=== PATIENT | female | born 1985 | race Caucasian/White ===

== ENCOUNTER 2022-06-08 14:21 | Emergency (ER) | payer MEDICAID ==
[~2022-06-08] VITALS: Ht 162.6 cm; Wt 87.3 kg
[2022-06-08 14:31] VITALS: BP 127/69
--- NOTE | 2022-06-08 14:42 | NUR ---
PT AMB TO BED 8.
--- NOTE | 2022-06-08 14:43 | NUR ---
Dr. Bhandari evaluating patient at bedside.
[2022-06-08] MEDS ORDERED: HYDROcodone/APAP 5/325 MG 1 TAB TAB PO ONE (14:50)
--- NOTE | 2022-06-08 14:54 | NUR ---
36 y/o female bib self with pressure pain to rectum x 2 weeks and abdominal pain. Per patient, she has not had a good bowel movement in over 2 weeks. Patient denies any fever or chills. Denies any new foods or sick contacts. Patient was being evaluated by PCP and given "milk." Patient denies hemorrhoids, diarrha or any blood in stool. Medical History: ROMULO NKDA
[2022-06-08 15:23] LABS: BASOPHILS # (AUTO) 0.1 K/uL (0.00-0.22); BASOPHILS % (AUTO) 0.5 % (0.0-2.0); EOSINOPHILS % (AUTO) 0.3 % (0.0-4.0); HEMATOCRIT 41.9 % (36-48); HEMOGLOBIN 13.7 g/dL (12.0-16.0); LYMPHOCYTES # (AUTO) 1.1 K/uL (2.5-16.5); LYMPHOCYTES % (AUTO) 8.9 % (20.5-51.1); MEAN CORPUSCULAR HEMOGLOBIN 28 pg (27-31); MEAN CORPUSCULAR HGB CONC 33 g/dL (33-37); MEAN CORPUSCULAR VOLUME 85.5 fL (80-94); MONOCYTES # (AUTO) 0.6 K/uL (0.8-1.0); MONOCYTES % (AUTO) 5.1 % (1.7-9.3); NEUTROPHILS # (AUTO) 10.7 K/uL (1.8-7.7); NEUTROPHILS % (AUTO) 85.2 % (42.2-75.2); PLATELET COUNT (AUTO) 428 K/uL (140-450); RED CELL DISTRIBUTION WIDTH 13.9 % (11.6-13.7); WHITE BLOOD COUNT (AUTO) 12.6 K/uL (4.8-10.8)
--- NOTE | 2022-06-08 15:36 | NUR ---
Patient was taken to Radiology via wheelchair.
[2022-06-08 15:37] LABS: ALBUMIN 4.5 g/dL (3.4-5.0); ANION GAP 15.3 (8-16); CARBON DIOXIDE 28.7 mmol/L (21-32); TOTAL BILIRUBIN 0.4 mg/dL (0.0-1.0)
--- NOTE | 2022-06-08 15:46 | NUR ---
Patient returned from Imaging.
[2022-06-08] MEDS ORDERED: fentaNYL citrate 0.05 MG/ML VIAL IM ONE (15:50)
--- NOTE | 2022-06-08 16:20 | NUR ---
Chaperoned Dr. Bhandari during procedure.
[2022-06-08] MEDS ORDERED: SODIUM PHOSPHATE 118 ML ENEM RC ONE (16:40)
--- NOTE | 2022-06-08 17:13 | NUR ---
Patient ambulated to restroom with assistance.
--- NOTE | 2022-06-08 17:19 | NUR ---
Patient had a large bowel movement. Dr. Bhandari made aware.
[2022-06-08 17:57] LABS: APPEARANCE,URINE CLEAR (CLEAR); BILIRUBIN,URINE NEGATIVE (NEGATIVE); BLOOD, URINE NEGATIVE (NEGATIVE); COLOR,URINE YELLOW (YELLOW); LEUKOCYTE ESTERASE ,URINE NEGATIVE (NEGATIVE); NITRITE, URINE NEGATIVE (NEGATIVE); UGLUCOSE 3+ (NEGATIVE)
--- NOTE | 2022-06-08 18:02 | NUR ---
Dr. Bhandari re-evaluating patient at bedside.
[2022-06-08 18:17] VITALS: BP 95/56
--- NOTE | 2022-06-08 18:17 | NUR ---
Patient discharged with v/s stable. Written and verbal after care instructions given. Patient verbalized understanding. Ambulatory with steady gait. All questions addressed prior to discharge. Advised to follow up with PMD.
--- NOTE | 2022-06-08 18:18 | NUR ---
The patient's care was reviewed and supervised by Radha Jackson RN.
== END 2022-06-08 18:17 | disposition home or self-care (01) ==
LOC: MED 14:21
DX: K56.41 Fecal impaction (principal); E11.9 Type 2 diabetes mellitus without complications; Z79.4 Long term (current) use of insulin; Z79.899 Other long term (current) drug therapy
CPT/HCPCS: 36415; 74018; 80053; 81003; 81025; 82948; 83690; 85025; 96372; 99284; J3010

== ENCOUNTER 2023-04-16 21:42 | Emergency (ER) | payer MEDICAID ==
[~2023-04-16] VITALS: Ht 162.6 cm; Wt 81.6 kg
[2023-04-16 22:30] VITALS: BP 102/78; PULSE 84; RESP 17; TEMP 98; O2SAT 98
[2023-04-16] MEDS ORDERED: IBUPROFEN 600 MG TAB PO ONE (23:20)
[2023-04-17] MEDS ORDERED: NAPR-54 PO (00:08)
[2023-04-17 00:10] VITALS: BP 119/80; PULSE 80; RESP 17; TEMP 98; O2SAT 100
== END 2023-04-17 00:10 | disposition home or self-care (01) ==
LOC: MED 21:42
DX: S83.92XA Sprain of unspecified site of left knee, initial encounter (principal); S20.219A Contusion of unspecified front wall of thorax, initial encounter; E11.9 Type 2 diabetes mellitus without complications; Z79.1 Long term (current) use of non-steroidal anti-inflammatories (NSAID); V89.2XXA Person injured in unspecified motor-vehicle accident, traffic, initial encounter; Y93.89 Activity, other specified; Y92.410 Unspecified street and highway as the place of occurrence of the external cause; Y99.8 Other external cause status
CPT/HCPCS: 71045; 73562; 99284